=== PATIENT | female | born 1955 | race Caucasian/White ===

== ENCOUNTER 2016-12-30 22:07 | Emergency (ER) | payer BC, OTHER ==
[~2016-12-30] VITALS: Ht 167.6 cm; Wt 86.2 kg
[2016-12-30 22:10] VITALS: BP_SYST 119
[2016-12-30] MEDS ORDERED: NITROGLYCERIN 0.4 MG TAB.SUBL SL ONE (22:30)
[2016-12-30] MEDS ORDERED: ASPIRIN 325 MG TABLET PO ONE (22:30)
[2016-12-30] MEDS ORDERED: CLOPIDOGREL BISULFATE 75 MG TABLET PO ONE (22:30)
[2016-12-30 22:41] LABS: BASOPHILS # (AUTO) 0.1 K/uL (0.0-0.2); BASOPHILS % (AUTO) 0.8 % (0.0-2.0); EOSINOPHILS # (AUTO) 0.4 K/uL (0.0-0.4); EOSINOPHILS % (AUTO) 3.5 % (0.0-4.0); HEMATOCRIT 44.9 % (36-48); HEMOGLOBIN 15.1 g/dL (12.0-16.0); LYMPHOCYTES % (AUTO) 23.9 % (20.5-51.5); MEAN CORPUSCULAR HEMOGLOBIN 31 pg (27-31); MEAN CORPUSCULAR HGB CONC 34 % (32-36); MEAN CORPUSCULAR VOLUME 93 fL (79.0-98.0); MONOCYTES # (AUTO) 1.1 K/uL (0.0-1.0); MONOCYTES % (AUTO) 8.8 % (1.7-9.3); NEUTROPHILS # (AUTO) 7.8 K/uL (1.8-7.7); PLATELET COUNT (AUTO) 248 K/uL (130-430); RED BLOOD CELL COUNT(AUTO) 4.81 MIL/uL (4.2-6.2); RED CELL DISTRIBUTION WIDTH 11.9 % (9.0-15.0); WHITE BLOOD COUNT (AUTO) 12.4 K/uL (4.8-10.8)
[2016-12-30] MEDS ORDERED: FENO160 PO (22:45)
[2016-12-30] MEDS ORDERED: VENL75CA PO (22:45)
[2016-12-30] MEDS ORDERED: SIMV10TA2 PO (22:45)
[2016-12-30] MEDS ORDERED: PLA200 PO (22:45)
[2016-12-30] MEDS ORDERED: TRAZ-126 PO (22:45)
[2016-12-30 22:58] LABS: CALCIUM 8.3 mg/dL (8.4-11.0); CREATININE 0.84 mg/dL (0.55-1.30); POTASSIUM 3.9 mmol/L (3.5-5.1)
[2016-12-30 23:02] LABS: ALBUMIN 3.2 g/dL (3.4-4.8); TOTAL BILIRUBIN 0.2 mg/dL (0.0-1.0)
[2016-12-30 23:15] LABS: PROTHROMBIN TIME 10.9 SECS (9.5-12.5)
[2016-12-30] MEDS ORDERED: KETOROLAC TROMETHAMINE 30 MG VIAL IVP ONE (23:30)
[2016-12-30 23:46] VITALS: BP_SYST 110
[2016-12-31 00:55] LABS: CKMB RELATIVE INDEX 1.6 (0.0-2.9); CREATINE KINASE MB 3.4 ng/mL (0-3.6)
== END 2016-12-30 23:46 | disposition home or self-care (01) ==
LOC: SED 22:07
DX: M94.0 Chondrocostal junction syndrome [Tietze] (principal); W19.XXXA Unspecified fall, initial encounter; Y93.89 Activity, other specified; Y92.89 Other specified places as the place of occurrence of the external cause; Y99.8 Other external cause status
CPT/HCPCS: 36415; 71010; 80053; 82550; 82553; 84484; 85025; 85610; 85730; 93005; 96374; 99285; J1885